=== PATIENT | female | born 1975 | race Caucasian/White ===

== ENCOUNTER 2022-08-29 10:12 | Outpatient (CLI) | payer OTHER, SELFPAY ==
--- NOTE | 2022-08-29 10:15 | CRLHL7_ITS ---
For Patients: As a result of the Century Cures Act, medical imaging exams and procedure reports are released immediately into your electronic medical record. You may view this report before your referring provider. If you have questions, please contact your health care provider. BILATERAL SCREENING MAMMOGRAM WITH COMPUTER-AIDED DETECTION AND TOMOSYNTHESIS TECHNIQUE: CC, MLO and Implant displaced views were obtained. These mammographic images have been obtained using full-field digital technique. These mammographic images were interpreted with the benefit of computer-aided detection. Breast Tomosynthesis was used in this interpretation. COMPARISON FILM: 11/16/19, 07/01/18, 10/03/15. FINDINGS: The breasts are extremely dense, which lowers the sensitivity of mammography IMPRESSION: There is no radiographic evidence for malignancy. ASSESSMENT: BI-RADS Category 2: Benign RECOMMENDATION: Routine screening mammogram in 1 year. A lay language report of this examination will be provided to the patient. Skyler Jade M.D. Diagnostic Radiologist [email or web address] Transcribed: 9:28 p.m. SHONNA/Dictated by: Skyler Jade MD @ 08/29/2022 12:30:00 PM (Electronically Signed)
== END 2022-08-29 10:13 | disposition home or self-care (01) ==
LOC: MAMMO 10:18
PROVIDERS: PCP Obstetrics & Gynecology; Visit Provider Internal Medicine Nephrology
DX: Z12.31 Encounter for screening mammogram for malignant neoplasm of breast (principal); R92.2 Inconclusive mammogram
CPT/HCPCS: 77063; 77067

== ENCOUNTER 2024-04-10 10:07 | Outpatient (CLI) | payer OTHER, SELFPAY | END 2024-04-10 10:08 | disposition home or self-care (01) | PROVIDERS: Visit Provider Obstetrics & Gynecology | DX: Z01.419 Encounter for gynecological examination (general) (routine) without abnormal findings (principal); N93.9 Abnormal uterine and vaginal bleeding, unspecified; F41.9 Anxiety disorder, unspecified; K59.00 Constipation, unspecified; Z13.228 Encounter for screening for other metabolic disorders; Z13.6 Encounter for screening for cardiovascular disorders | CPT/HCPCS: 80053; 80061; 82670; 83001; 84144; 84403; 84439; 84443; 86376 ==

== ENCOUNTER 2024-05-04 14:47 | Outpatient (CLI) | payer OTHER, SELFPAY ==
--- NOTE | 2024-05-04 15:00 | CRLHL7_ITS ---
For Patients: As a result of the Century Cures Act, medical imaging exams and procedure reports are released immediately into your electronic medical record. You may view this report before your referring provider. If you have questions, please contact your health care provider. INDICATION: Abnormal uterine and vaginal bleeding COMPARISON: none TECHNIQUE: 2D beltran scale and color Doppler images were acquired of the pelvis using a transabdominal and transvaginal approach. FINDINGS: Sonographic images demonstrate a normal size and smooth outer contour of the uterus. Uterus measures 7.9 cm in length by 4.2 cm in AP diameter by 5.9 cm in transverse dimension. The myometrium has a normal uniform echotexture. The endometrial lining measures 17 mm in composite thickness. The right ovary measures 2.3 x 1.3 x 1.2 cm in size and the left ovary measures 2.4 x 1.1 x 1.8 cm. The ovaries demonstrate normal arterial and venous blood flow on color Doppler analysis. There are no suspicious fluid collections within the cul-de-sac. IMPRESSION: Thickened endometrium measuring 1.7 cm. No endometrial fluid. No uterine fibroid. Dictated by Skyler Jade MD @ 05/05/2024 6:02:30 AM (Electronically Signed)
== END 2024-05-04 14:48 | disposition home or self-care (01) ==
LOC: US 14:47
PROVIDERS: Visit Provider Obstetrics & Gynecology
DX: N93.9 Abnormal uterine and vaginal bleeding, unspecified (principal); R93.89 Abnormal findings on diagnostic imaging of other specified body structures
CPT/HCPCS: 76830; 76856

== ENCOUNTER 2024-05-19 11:28 | Outpatient (CLI) | payer OTHER, SELFPAY | END 2024-05-19 11:29 | disposition home or self-care (01) | LOC: LKVREF 11:29 | PROVIDERS: Visit Provider Family Medicine | DX: Z01.818 Encounter for other preprocedural examination (principal) | CPT/HCPCS: 80048 ==

== ENCOUNTER 2024-05-27 07:12 | Day surgery (SDC) | payer OTHER, SELFPAY ==
[2024-05-27] VITALS (7 sets, daily range): BP systolic 112–134; BP diastolic 55–89; PULSE 48–72; RESP 12–16; TEMP 36.1–36.6; O2SAT 97–100; BMI 21.3
--- NOTE | 2024-05-27 08:09 | W.PM.H&PU ---
History & Physical Update History & Physical Update H&P Reviewed and patient assessed: No changes noted
[2024-05-27] MEDS: SODIUM CHLORIDE 0.9 % (FLUSH) 10 ML SYRINGE IVF (08:16)
[2024-05-27] MEDS: LACTATED RINGERS 1000 ML 1,000 ML 100 ML IV (08:17)
[2024-05-27 08:21] LABS: Hemoglobin* 12.9 gm/dL (12.0-16.0)
--- NOTE | 2024-05-27 09:36 | W.ANESCHARGE ---
Anesthesia Charges Start Date/Time Anesthesia Start Date: 05/27/24 Anesthesia Start Time: 08:35 Stop Date/Time Anesthesia Stop Date: 05/27/24 Anesthesia Stop Time: 09:58
[2024-05-27] MEDS: BUPIVACAINE 0.5% 30 ML INJECTION (09:46)
[2024-05-27] MEDS: SILVER NITRATE APPLICATOR 1 EACH STICK..EA. TOPICAL (09:46)
--- NOTE | 2024-05-27 09:53 | SUR.OPER ---
Patient fluid defecit 800 ml
--- NOTE | 2024-05-27 09:58 | SUR.OPER ---
Inflow tubing fell off device four times
--- NOTE | 2024-05-27 09:58 | W.PM.GYNPROC ---
Procedure Note Date of procedure: 05/27/24 Will [facility] bill your pro fee for this procedure?: Yes Pre-op diagnosis: Postmenopausal bleeding, thick endometrial lining, uterine fibroids, suspected endometrial polyps Post-op diagnosis: Postmenopausal bleeding, thick endometrial lining, uterine fibroids, suspected endometrial polyps Procedure: Hysteroscopy, dilation and curettage Anesthesia: MAC Complications: None Surgeon: Sandra Simms MD Estimated blood loss (mL): 20 IV fluids (mL): 800 Urine Output (mL): 50 Pathology: specimen obtained, sent to pathology Condition: stable Disposition: same day Findings: Findings: Normal external genitalia. Bimanual exam: anteverted uterus of about 9cm. Speculum exam: grossly normal cervix, no abnormal discharge. Intrauterine cavity: Posterior lower uterine segment lesion that looked like fibroid and measured about 1-2cm, posterior to this a false track from dilation noted, no perforation, bilateral cornual openings seen, fluffy and thick endometrium all over. Endocervical polypoid lesion. Procedure Description: Patient was taken to the OR were MAC anesthesia was administered without difficulty. She was placed in the dorsal lithotomy position with Scooby type stirrups. An exam under anesthesia as described above. Patient was then prepared and draped in the normal sterile fashion. A bivalved speculum was inserted in the posterior aspect of the vagina. 0.5% Bupivacaine was injected at 2 and 11 o'clock a total of about 5mL utilized. A single-tooth tenaculum was used to grasp the anterior lip of the cervix. The uterus was carefully sounded to 8 cm. The cervical os was sequentially dilated to accommodate the 5 mm TrueClear hysteroscope using Hegar dilators. A 5 mm 30 degree TrueClear hysteroscope was introduced under direct visualization, and the uterus was distended with normal saline. False tract identified below the lesion that appeared to be a small fibroid in the posterior lower uterine segment, this prevented entrance to the uterine cavity anteriorly. Soft tissue incisor blade from TrueClear hysteroscope system was introduced under direct visualization and lesion was attempted to be removed, this was insufficient and a dense tissue incisor blade was then introduced that helped shave the fibroid appearing lesion and then allowed entrance to the intrauterine cavity. Findings as above. Soft tissue incisor blade from TrueClear hysteroscope system was introduced under direct visualization and endometrial curettings performed. Hysteroscope removed under direct visualization.Tenaculum was removed from the cervix and good hemostasis was noted at puncture sites. Patient tolerated the procedure well. Instrument and sponge counts were correct x2. The patient was awakened from MAC anesthesia and taken to the recovery room in a stable condition. The patient will go home after recovering from anesthesia and meeting all the criteria for discharge. She was given instruction regarding follow-up visit in 2 weeks at [facility] and instructions for pain medication. Fluid deficit: 800mL
--- NOTE | 2024-05-27 09:59 | W.ANESCHARGE ---
Anesthesia Charges Start Date/Time Anesthesia Start Date: 05/27/24 Anesthesia Start Time: 08:35 Stop Date/Time Anesthesia Stop Date: 05/27/24 Anesthesia Stop Time: 09:58
[2024-05-27] MEDS: KETOROLAC 15 MG/ML inj IVP (10:46)
--- NOTE | 2024-05-27 10:53 | SUR.PHASEII ---
Pt reports cramping 5/10. Pt received 15mg Toradol from [employer] during the surgery, 30mg was ordered by Dr. Menjivar, additional 15mg given to pt. Pt tolerated yogurt, crackers and water.
[2024-05-27] MEDS: ACETAMINOPHEN 500 MG TABLET 1000 MG PO (11:00)
== END 2024-05-27 11:20 | disposition home or self-care (01) ==
LOC: OR 07:13
PROVIDERS: Visit Provider Obstetrics & Gynecology
PROC: 0UDB8ZZ Extraction of Endometrium, Via Natural or Artificial Opening Endoscopic (ICD-10-PCS; CPT 58558; principal; 2024-05-27 08:30)
DX: N95.0 Postmenopausal bleeding (principal); R93.89 Abnormal findings on diagnostic imaging of other specified body structures; D25.9 Leiomyoma of uterus, unspecified
CPT/HCPCS: 58558; 00952; 36415; 85018; 88305; A9270; C1782; J0665; J1100; J1885; J2405; J2704; J3010; J7120

== ENCOUNTER 2024-07-30 11:33 | Outpatient (CLI) | payer OTHER, SELFPAY | END 2024-07-30 11:34 | disposition home or self-care (01) | PROVIDERS: Visit Provider Obstetrics & Gynecology | DX: N93.9 Abnormal uterine and vaginal bleeding, unspecified (principal) | CPT/HCPCS: 82670; 83001 ==